=== PATIENT | female | born 1995 | race African-American/Black ===

== ENCOUNTER 2022-01-20 09:52 | Outpatient (CLI) | payer OTHER, SELFPAY ==
[2022-01-20 11:00] LABS: Beta HCG Quantitative < 2.39 mIU/ML
== END 2022-01-20 09:53 | disposition home or self-care (01) ==
PROVIDERS: Visit Provider Obstetrics & Gynecology
DX: N92.6 Irregular menstruation, unspecified (principal)
CPT/HCPCS: 36415; 84702

== ENCOUNTER 2022-10-13 17:57 | Inpatient (IN) | payer OTHER, SELFPAY ==
--- NOTE | ~2022-10-13 | US_ITS ---
EXAMINATION: US abdomen limited DATE: 10/13/2022 23:21 INDICATION: pancreatitis epigastric pain TECHNIQUE: Multiple grayscale and Doppler ultrasound images of limited portions of the abdomen were o btained. COMPARISON: CT abdomen and pelvis, same date. FINDINGS: The visualized portions of the pancreas are sonographically normal. The liver is normal wit h normal echogenicity and echotexture. No surface nodularity. Normal hepatopetal flow in the main por tonny vein. The gallbladder is normal with no abnormal wall thickening, pericholecystic fluid or stones . The common bile duct measures 4 mm. There was no sonographic Salcedo sign. IMPRESSION: Normal limited abdominal ultrasound findings. Reviewed, dictated and finalized at location K. METRIC ASSISTANT
--- NOTE | ~2022-10-13 | CT_ITS ---
EXAMINATION: CT abdomen pelvis w con DATE: 10/13/2022 21:50 INDICATION: abdominal pain elevated lipase TECHNIQUE: Computed tomography (CT) of the abdomen and pelvis was performed with 100 mL Omnipaque-350 intravenous contrast. Automated exposure control and iterative reconstruction technique were employe d. The dose-length product was 272.64 mGy-cm. COMPARISON: None. FINDINGS: Lower thorax: Unremarkable Liver: Normal. Biliary/Gallbladder: Gallbladder is normal. No bile duct dilation. Pancreas: Enlarged edematous appearing pancreas with surrounding inflammatory change. Spleen: Normal. Adrenals:No mass. Kidneys: No mass, stone, or hydronephrosis. Ectopic right kidney. GI tract: Moderate distal esophageal and gastric wall edema. No small or large bowel dilation. Append ix not visualized. Mesentery/Peritoneum: No ascites, mass, or free air. Retroperitoneum: No mass. Pelvis: Urinary bladder is empty. Dilated intensely enhancing left uterine and pelvic veins. Soft Tissues: Soft tissues and body wall unremarkable. Bones: No acute osseous finding. IMPRESSION: Esophagitis/gastritis. Acute interstitial pancreatitis. Dilated left uterine and pelvic veins as can be seen with pelvic venous congestion. Appendix not visualized. Reviewed, dictated and finalized at location K. IAL EDUCATION PARAEDUCATOR IMPRESSION: Esophagitis/gastritis. Acute interstitial pancreatitis. Dilated left uterine an d pelvic veins as can be seen with pelvic venous congestion. Appendix not visua lized.
--- NOTE | ~2022-10-13 | XR_ITS ---
EXAMINATION: XR chest 2V Exam Date/Time: 10/13/2022 18:44 FINANCIAL REPRESENTATIVE HISTORY: chest pain Comparison: 07/02/2009. RESULT: Lines, tubes, and devices: None. Lungs and pleura: Clear. Cardiomediastinal silhouette: Stable. Other: No acute osseous or upper abdominal finding. IMPRESSION: No acute cardiopulmonary process. Reviewed, dictated and finalized at location K. NCIAL REPRESENTATIVE
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
[2022-10-13 18:05] VITALS: BP 115/88; PULSE 94; RESP 18; TEMP 37.2; O2SAT 100
[2022-10-13 18:38] LABS: Basophils Percent Auto 0.1 % (0.2-1.2); Eosinophils Absolute Auto 0.1 K/mm3 (0-0.3); Hematocrit 38.7 % (37.0-47.0); Hemoglobin 12.9 g/dL (12.0-15.0); Immature Granulocyte Absolute 0.03 K/mm3 (0.00-0.031); Immature Granulocyte Percent A 0.4 % (0-0.5); Immature Platelet Fraction Pct 2.5 % (0.9-11.2); Lymphocytes Absolute Auto 1.76 K/mm3 (0.9-3.2); Lymphocytes Percent Auto 24.8 % (18.3-44.2); Mean Corpuscular HGB Conc 33.3 g/dl (32-36); Mean Corpuscular Hemoglobin 29.2 pg (26-34); Mean Corpuscular Volume 87.6 fl (80-100); Monocytes Absolute Auto 0.5 K/mm3 (0.1-0.6); Neutrophils Absolute Auto 4.7 K/mm3 (1.3-6.7); Neutrophils Percent Auto 66.7 % (45.5-73.1); Platelet Count Result 264 k/mm3 (150-375); Red Blood Count 4.42 M/mm3 (4.2-5.4); Red Cell Distribution Width 13.5 % (11.5-14.5); White Blood Count 7.1 K/mm3 (4.5-10.0)
[2022-10-13 18:46] LABS: Alanine Aminotransferase 45 U/L (6-35); Albumin Level 4.7 g/dL (3.5-5.1); Alkaline Phosphatase 69 U/L (38-126); Anion Gap 10 mmol/L (8-16); Aspartate Amino Transferase 46 U/L (14-36); Bilirubin,Total 0.6 mg/dL (0.2-1.3); Blood Urea Nitrogen 9 mg/dL (7-17); Calcium 9.4 mg/dL (8.4-10.2); Carbon Dioxide 20 mmol/L (22-30); Chloride 108 mmol/L (98-107); Estimated CRCL calculation 101 ml/min; Estimated Glomerular Filt Rate > 60; Glucose 86 mg/dL (65-110); Lipase 1818 U/L (23-300); Sodium 138 mmol/L (137-145)
[2022-10-13 18:49] LABS: INR 1.2; Prothrombin Time 14.6 Seconds (11.1-14.7)
[2022-10-13 18:50] LABS: Partial Thromboplastin Time 32.6 SECONDS (22.3-36.8)
[2022-10-13 18:58] LABS: Troponin I < 0.012 ng/mL (0.000-0.034)
[2022-10-13 20:03] VITALS: BP 122/90; PULSE 82; RESP 18; O2SAT 100
[2022-10-13] MEDS: ASPIRIN 81 MG CHEWABLE TABLET 324 MG PO (20:05)
--- NOTE | 2022-10-13 20:27 | ED.GENADULT ---
HPI - General Adult General Chief complaint: Chest Pain Stated complaint: CHEST WALL PAIN Time Seen by Provider: 10/13/22 20:14 History of Present Illness HPI narrative: Patient was 7-year-old female who presents the emergency department with chief complaint of epigastric pain. Patient reports that 4 days ago she started having discomfort in her epigastric region the patient reports that the pain is an aching-like pain with a sharp component. Patient denies vomiting patient denies fever patient reports that symptoms or not improved by anything. Patient states for the last 4 days she has been trying to just do rest on her abdomen and doing clear liquids but reports the pain has been getting worse. Patient reports no prior history of abdominal surgery and the patient reports that she does drink alcohol but drinks socially Related Data Allergies Allergy/AdvReac Type Severity Reaction Status Date / Time No Known Allergies Allergy Verified 10/09/22 10:02 Review of Systems Review of Systems: A 10 system review of systems was completed on the patient and is negative except for what is stated in the HPI. Nursing and ancillary documentation was reviewed. [facility] Past Medical History Medical History Asthma Complete miscarriage (~2017) Surgical History Surgical History History of dilation and curettage (~11/2017) Social History Social History Smoking status: Never smoker Alcohol intake: current Drinks per week: 1 Substance use: never Substance use type: does not use Living arrangements: other Additional living arrangements comments: single Occupation/Education: unemployed Gender identity (if verbalized by the patient): Female Sexual Orientation (if Verbalized by the Patient): Straight or Heterosexual Exam Narrative: GENERAL: Well-appearing, well-nourished, and in no acute distress. HEAD: Normocephalic, atraumatic. EYES: PERRLA and EOMI. ENT: Nares clear, no rhinorrhea or epistaxis. Mucous membranes moist. NECK: Supple. CHEST: Clear to auscultation. No respiratory distress. HEART: Regular rate and rhythm. No murmur heard. Normal peripheral pulses. ABDOMEN: Soft, tenderness to palpation in the epigastric region, nondistended, normal active bowel sounds. EXTREMITIES: Normal range of motion. No edema. SKIN: Warm, dry, no rash. NEURO: No focal deficits. Alert and oriented x3. PSYCH: Normal mood and affect. Course Vital Signs Vital signs: Vital Signs Temperature 37.2 C 10/13/22 18:05 Pulse Rate 94 10/13/22 18:05 Respiratory Rate 18 10/13/22 18:05 Blood Pressure 115/88 10/13/22 18:05 Pulse Oximetry 100 10/13/22 18:05 Oxygen Delivery Room Air 10/13/22 18:05 Temperature 37.2 C 10/13/22 18:05 Pulse Rate 78 10/13/22 22:34 Respiratory Rate 12 10/13/22 22:34 Blood Pressure 108/71 10/13/22 22:34 Pulse Oximetry 100 10/13/22 22:34 Oxygen Delivery Room Air 10/13/22 20:04 Medical Decision Making MDM Narrative Medical decision making narrative: Differential diagnosis includes ACS, pneumothorax, pancreatitis, EKG interpreted by me is sinus rhythm rate of [address] elevation or ST depression Laboratory studies were obtained which showed a negative troponin normal CBC electrolytes showed minimal elevation of liver transaminases as AST and ALT of 46 and 45 respectively bilirubin 0.6 lipase was 1818. Patient's history and exam is consistent with acute pancreatitis. Patient will be started on IV fluids pain control and antiemetics. A CT scan of the abdomen pelvis will be ordered to evaluate for pseudocyst or biliary causes for the pancreatitis. ct scan shows evidence of acute pancreatitis. Vital Signs Vital Signs: Vital Signs Temperature 37.2 C 10/13/22 18:05 Pulse Ra
[2022-10-13] MEDS: ONDANSETRON INJ 4 MG/2 ML VIAL IV PUSH (20:38)
[2022-10-13] MEDS: SODIUM CHLORIDE 0.9% IV 1,000 ML 999 ML IV CONT (20:38)
[2022-10-13] MEDS: MORPHINE SULFATE (*CRX) 4 MG/ML INJ IV PUSH (20:39)
[2022-10-13] MEDS: HYDROmorphone HCL INJ (*CRX) 1 MG/ML SYR IV PUSH ×2 (21:38→23:11)
[2022-10-13 21:39] VITALS: BP 111/69; PULSE 75; RESP 18; O2SAT 100
[2022-10-13 21:50] LABS: Influenza A QL RT-PCR Negative (Negative); Influenza B QL RT-PCR Negative (Negative); SARS-CoV-2 RNA PCR Negative
[2022-10-13 21:54] LABS: Troponin I < 0.012 ng/mL (0.000-0.034)
--- NOTE | 2022-10-13 22:33 | PC.NURSE ---
pt resting comfortably on stretcher, no acute distress, pt reports pain is still a 10/10, states no relief with the morphine or the dilaudid. pt awaiting re-eval and plan.
[2022-10-13 22:34] VITALS: BP 108/71; PULSE 78; RESP 12; O2SAT 100
[2022-10-13] MEDS: PANTOPRAZOLE SODIUM IV 40 MG VIAL IV PUSH (22:52)
[2022-10-13] MEDS: SODIUM CHLORIDE 0.9% IV 1,000 ML 200 ML IV CONT (23:00)
[2022-10-13 23:24] VITALS: BP 113/72; PULSE 76; RESP 18; O2SAT 100
[2022-10-14 00:17] VITALS: BMI 23.7
[2022-10-14 00:23] VITALS: BP 107/61; PULSE 73; RESP 18; TEMP 36.7; O2SAT 100
--- NOTE | 2022-10-14 00:33 | ADMGEN ---
This patient, Nicole Crowley, was admitted to Medical Room 345-. Patient/family oriented to hospital policies and general routines including ID bracelet, bed and alarms, visiting hours, pain management, procedures, bathroom and other care routines, personal items, smoking policy, room service/diet, and visiting hours. Information on how to activate the Rapid Response Team has been discussed. Patient/Family are encouraged to report perceived risks to care and to ask questions if they do not understand what they are told or what they should do.
[2022-10-14 01:34] LABS: Troponin I < 0.012 ng/mL (0.000-0.034)
[2022-10-14] MEDS: BELLADONNA ALK/PHENOB ELIX 10 ML, MAG HYDROX/ALUMINUM HYD/SIMETH 30 ML, LIDOCAINE HCL 2... PO (02:15)
[2022-10-14 03:57] VITALS: BP 104/54; PULSE 58; RESP 16; TEMP 36.6; O2SAT 100
[2022-10-14] MEDS: KETOROLAC 30 MG/ML VIAL (*BKC) IV PUSH ×3 (04:03→19:18)
--- NOTE | 2022-10-14 05:20 | PM.IMHP ---
H&P: HPI History of Present Illness Date/Time: 10/14/22 03:10 Chief Complaint: Upper abdominal pain Narrative: 27-year-old female previously healthy who presented to the ER with epigastric abdominal pain. The patient initially stated that she was having chest pain but when she indicates where the pain is located is in the epigastric region. She is states that she tried to take Tylenol at home with pain without relief. The pain is worse with moving and deep breathing. She states the pain is sharp and constant at all times. Does not radiate to her back or right upper quadrant. She has no associated nausea or vomiting. She states it is been going on for 4 days and she was managing it by trying to stay in bed and only drinking liquids. She says that she is on food stamps and it for 4- 5 days prior to the onset of symptoms she was cooking a lot of food to usual to food that he had from the month before. She said her last meal prior to onset of symptoms was steak. She denies any recent ill contacts or travel. She has any changes in bowel habits. She has not had a bowel movement in the last 4 days but relates this to the fact that she has not been eating for 4 days. She denies any urinary symptoms. She has not had any fevers or chills. She has never had symptoms like this before. She has never had any abdominal surgeries. She has 2 children which she delivered vaginally. She she does drink alcohol on occasion but the last time she drank was 5-6 days prior to onset of her symptoms. In the ER CT demonstrated esophagitis/gastritis. And acute interstitial pancreatitis. Dilated uterine and pelvic veins can be seen with pelvic venous congestion. Appendix not visualized. Patient's lipase was also elevated to 1818 and she had mild transaminitis with AST 46 and ALT of 45. Plan was for right upper quadrant ultrasound in a.m. but technology recruiter evidently came in and did the ultrasound last evening and ultrasound was negative for gallbladder pathology or stones. I gave the patient a GI cocktail after she arrived to the floor because she stated that morphine and Dilaudid did not help her pain. She also did not like the FX of the morphine and Dilaudid. She states that she is afraid of pain medications. She is requesting something else for pain that is not narcotics. She received IV Tylenol as well after my evaluation in that did not help her pain either. Review of Systems Review of Systems: 12 systems were reviewed with pertinent positives and negatives per HPI. Except as documented in the HPI, all other systems were reviewed and are negative. [facility] Past Medical History Medical History (Updated 10/14/22 @ 05:38 by Agatha Rodriguez DO) Complete miscarriage (~2017) Surgical History Surgical History History of dilation and curettage (~11/2017) Family History Family History Grandparent Diabetes mellitus Father Diabetes mellitus Mother Asthma Social History Social History (Updated 10/14/22 @ 05:30 by Agatha Rodriguez DO) Social History: She lives with her boyfriend. She has 2 children a daughter age 10 in the son H 3. To lifelong nonsmoker. She drinks alcohol in moderation in on occasion. She denies any illicit substance use. Code status: Full code Smoking status: Never smoker Alcohol intake: current Drinks per week: 1 Substance use: never Substance use type: does not use Lack of Transportation: No Lack of Food: Never True Current Housing: I Have Housing Concerned About Future Housing: No Difficulty Paying Gas/Electric Bills: No Difficulty Paying for Meds: No Currently Unemployed: No Education: High School Diploma/GED Difficulty w/ Childcare or Family Care: YES Living arrangements: other Additional living arrangements comments: single Occupation/Education: unemployed [employer]
[2022-10-14 06:25] LABS: Alanine Aminotransferase 34 U/L (6-35); Albumin Level 3.6 g/dL (3.5-5.1); Alkaline Phosphatase 50 U/L (38-126); Anion Gap 6 mmol/L (8-16); Aspartate Amino Transferase 32 U/L (14-36); Bilirubin,Total 0.5 mg/dL (0.2-1.3); Blood Urea Nitrogen 5 mg/dL (7-17); Calcium 7.8 mg/dL (8.4-10.2); Carbon Dioxide 20 mmol/L (22-30); Chloride 108 mmol/L (98-107); Estimated CRCL calculation 116 ml/min; Estimated Glomerular Filt Rate > 60; Glucose 81 mg/dL (65-110); Lipase 1859 U/L (23-300); Potassium 3.4 mmol/L (3.4-5.0); Sodium 134 mmol/L (137-145)
[2022-10-14] MEDS: SODIUM CHLORIDE 0.9% IV 1,000 ML 200 ML IV CONT (08:33)
[2022-10-14] MEDS: PANTOPRAZOLE SODIUM IV 40 MG VIAL IV PUSH (08:33)
--- NOTE | 2022-10-14 13:18 | PM.IMPN ---
Subjective Date/time seen: 10/14/22 13:18 Pt seen and examined Pt admitted for alcoholic pancreatitis States her abdomen is still sore Requesting more pain medications Pt drinks heavily on weekends watch for DT Continue npo with iv fluids and pain medications Objective Data Vital Signs Vital Signs: Vital Signs - 24 hr 10/13/22 18:05 10/13/22 20:03 10/13/22 20:04 Temperature 37.2 C Pulse Rate 94 82 Respiratory Rate 18 18 Blood Pressure 115/88 122/90 Pulse Oximetry 100 100 Oxygen Delivery Room Air Room Air 10/13/22 21:39 10/13/22 22:34 10/13/22 23:24 Temperature Pulse Rate 75 78 76 Respiratory Rate 18 12 18 Blood Pressure 111/69 108/71 113/72 Pulse Oximetry 100 100 100 Oxygen Delivery 10/14/22 00:23 10/14/22 03:57 10/14/22 08:30 Temperature 36.7 C 36.6 C Pulse Rate 73 58 L Respiratory Rate 18 16 Blood Pressure 107/61 104/54 L Pulse Oximetry 100 100 Oxygen Delivery Room Air Intake/Output Intake/Output: Intake & Output 10/11/22 10/12/22 10/13/22 10/14/22 23:59 23:59 23:59 23:59 Intake Total 1000 1000 Output Total 350 Balance 1000 650 Meds/Results Medications: Active Medications Generic Name Dose Route Start Last Admin Trade Name Freq PRN Reason Stop Dose Admin Hydromorphone HCl 1 mg 10/13/22 22:47 Hydromorphone Hcl Inj (*Crx) 1 Mg/Ml Syr IV PUSH Q3H PRN Pain Rated 7-10 Sodium Chloride 1,000 mls @ 100 mls/hr 10/13/22 22:50 10/14/22 08:33 Normal Saline Iv IV CONT 200 mls/hr .Q10H JULES Administration Ketorolac Tromethamine 30 mg 10/14/22 03:34 10/14/22 10:22 Ketorolac 30 Mg/Ml Vial (*Bkc) IV PUSH 10/16/22 03:33 30 mg Q6H PRN Administration Pain Rated 4-6 Ondansetron HCl 4 mg 10/13/22 22:47 Ondansetron Inj 4 Mg/2 Ml Vial IV PUSH Q4H PRN Nausea Pantoprazole Sodium 40 mg 10/14/22 09:00 02/22/23 08:33 Pantoprazole Sodium Iv 40 Mg Vial IV PUSH 40 mg QAM JULES Administration Radiology Results: ITS Impressions Chest X-Ray 10/13/22 19:11 IMPRESSION: No acute cardiopulmonary process. Abdomen/Pelvis CT 10/13/22 22:08 IMPRESSION: Esophagitis/gastritis. Acute interstitial pancreatitis. Dilated left uterine and pelvic veins as can be seen with pelvic venous congestion. Appendix not visualized. Abdomen Ultrasound 10/13/22 23:22 IMPRESSION: Normal limited abdominal ultrasound findings. Labs Labs: Laboratory Results - last 24 hr 10/13/22 10/13/22 10/13/22 18:12 18:12 18:12 WBC 7.1 RBC 4.42 Hgb 12.9 Hct 38.7 MCV 87.6 MCH 29.2 MCHC 33.3 RDW 13.5 Plt Count 264 MPV TNP Immature Gran % (Auto) 0.4 Neut % (Auto) 66.7 Lymph % (Auto) 24.8 [place] % (Auto) 7.0 Eos % (Auto) 1.0 Baso % (Auto) 0.1 L Lymph # (Auto) 1.76 [place] # (Auto) 0.5 Eos # (Auto) 0.1 Baso # (Auto) 0.0 Abs Immat Gran (auto) 0.03 Absolute Neuts (auto) 4.7 Absolute Nucleated RBC 0.0 Nucleated RBC % 0.0 % Immature Plt Fraction 2.5 PT 14.6 INR 1.2 APTT 32.6 Sodium 138 Potassium 4.0 Chloride 108 H Carbon Dioxide 20 L Anion Gap 10 BUN 9 Creatinine 0.70 Estim Creat Clear Calc 101 Estimated GFR > 60 Glucose 86 Calcium 9.4 Total Bilirubin 0.6 AST 46 H ALT 45 H Alkaline Phosphatase 69 Troponin I < 0.012 Total Protein 8.0 Albumin 4.7 Lipase 1818 H TSH (Reflex) Influenza A (RT-PCR) Influenza B (RT-PCR) SARS-CoV-2 RNA (RT-PCR) 10/13/22 10/13/22 10/14/22 21:08 21:23 00:40 WBC RBC Hgb Hct MCV MCH MCHC RDW Plt Count MPV Immature Gran % (Auto) Neut % (Auto) Lymph % (Auto) [place] % (Auto) Eos % (Auto) Baso % (Auto) Lymph # (Auto) [place] # (Auto) Eos # (Auto) Baso # (Auto) Abs Immat Gran (auto) Absolute Neuts (auto) Absolute Nucleated RBC Nucle
[2022-10-14 14:00] VITALS: BP 102/71; PULSE 72; RESP 16; TEMP 36.6; O2SAT 100
[2022-10-14] MEDS: SODIUM CHLORIDE 0.9% IV 1,000 ML 100 ML IV CONT (16:53)
[2022-10-14] MEDS: HYDROcodone/acetaminophen (*CRX) 10-325 MG TABLET 1 TAB PO ×2 (18:04→23:53)
[2022-10-14] MEDS: ONDANSETRON INJ 4 MG/2 ML VIAL IV PUSH (19:18)
[2022-10-14 20:00] VITALS: PULSE 72; RESP 16; O2SAT 100
[2022-10-14 21:09] VITALS: BP 104/66; PULSE 86; RESP 18; TEMP 36.4; O2SAT 100
[2022-10-15] MEDS: SODIUM CHLORIDE 0.9% IV 1,000 ML 100 ML IV CONT ×3 (03:19→23:40)
[2022-10-15 04:53] VITALS: BP 103/51; PULSE 70; RESP 18; TEMP 36.3; O2SAT 100
[2022-10-15] MEDS: HYDROcodone/acetaminophen (*CRX) 10-325 MG TABLET 1 TAB PO ×4 (05:57→23:40)
[2022-10-15] MEDS: PANTOPRAZOLE SODIUM IV 40 MG VIAL IV PUSH (08:13)
[2022-10-15] MEDS: KETOROLAC 30 MG/ML VIAL (*BKC) IV PUSH (08:13)
[2022-10-15 09:16] LABS: Anion Gap 6 mmol/L (8-16); Blood Urea Nitrogen 2 mg/dL (7-17); Calcium 8.1 mg/dL (8.4-10.2); Carbon Dioxide 21 mmol/L (22-30); Chloride 109 mmol/L (98-107); Estimated CRCL calculation 116 ml/min; Estimated Glomerular Filt Rate > 60; Glucose 73 mg/dL (65-110); Potassium 3.3 mmol/L (3.4-5.0); Sodium 136 mmol/L (137-145)
[2022-10-15 09:21] LABS: Lipase 2230 U/L (23-300)
--- NOTE | 2022-10-15 11:23 | PM.IMPN ---
Progress Note: A&P Assessment and Plan (1) Acute pancreatitis: Qualifiers: Acute pancreatitis complication: no infection or necrosis Pancreatitis type: idiopathic Qualified Code(s): K85.00 - Idiopathic acute pancreatitis without necrosis or infection Code(s): K85.90 - Acute pancreatitis without necrosis or infection, unspecified Status: Acute Assessment and Plan: Acute pancreatitis secondary to alcoholism GB US is negative. Pt having ongoing abdominal pains, start clear liquid diet Watch lipase levels, GI rounding Pt on iv Dilaudid and norco prn for pain pt is on iv fluids and iv protonix (2) Alcohol abuse: Code(s): F10.10 - Alcohol abuse, uncomplicated Status: Acute Assessment and Plan: Pt having high CIWA scores pt to have Librium if CIWA is above 4 Plan DVT prophylaxis--encouraged the patient be up and ambulating. Subjective Date/time seen: 10/15/22 11:23 Pt admitted for alcoholic pancreatitis States her abdomen is still sore Requesting more pain medications Pt drinks heavily on weekends lipase slightly worse today at 2230 pt anxious because she cannot see her children Review of Systems Review of Systems: Ongoing abdominal pain, very anxious Exam Const: Other: No acute distress, well-developed well-nourished Resp: Other: Clear to auscultation bilaterally, no increased work of breathing Cardio: Other: Regular rate, regular rhythm, 2+ bilateral radial pedal pulses GI: Other: Reproducible epigastric abdominal pain, abdomen is soft, positive bowel sounds, no organomegaly, no rebound, no guarding Skin: Other: No jaundice, no pallor Neuro: Other: Alert oriented, speech is clear, no facial asymmetry, no localizing neurologic deficits noted during conversation Extrem: Other: No clubbing, cyanosis or edema Psych: Other: Appropriate mood and affect, pleasant and cooperative, anxious when discussing medications Objective Data Vital Signs Vital Signs: Vital Signs - 24 hr 10/14/22 14:00 10/14/22 20:00 10/14/22 21:09 Temperature 36.6 C 36.4 C Pulse Rate 72 72 86 Respiratory Rate 16 16 18 Blood Pressure 102/71 104/66 Pulse Oximetry 100 100 100 Oxygen Delivery Room Air 10/15/22 04:53 10/15/22 08:00 Temperature 36.3 C L Pulse Rate 70 Respiratory Rate 18 Blood Pressure 103/51 L Pulse Oximetry 100 Oxygen Delivery Room Air Intake/Output Intake/Output: Intake & Output 10/12/22 10/13/22 10/14/22 10/15/22 23:59 23:59 23:59 23:59 Intake Total 1000 2240 1690 Output Total 1050 1675 Balance 1000 1190 15 Meds/Results Medications: Active Medications Generic Name Dose Route Start Last Admin Trade Name Freq PRN Reason Stop Dose Admin Hydrocodone Bitart/Acetaminophen 1 tab 10/14/22 18:00 10/15/22 05:57 Hydrocodone/Acetaminophen (*Crx) 10-325 Mg Tablet PO 1 tab Q6HR JULES Administration Chlordiazepoxide HCl 10 mg 10/14/22 13:22 Chlordiazepoxide (*Crx) 10 Mg Capsule PO Q8H PRN Anxiety Hydromorphone HCl 1 mg 10/14/22 13:21 Hydromorphone Hcl Inj (*Crx) 1 Mg/Ml Syr IV PUSH Q2H PRN Pain Rated 7-10 Sodium Chloride 1,000 mls @ 100 mls/hr 10/13/22 22:50 10/15/22 03:19 Normal Saline Iv IV CONT 100 mls/hr .Q10H JULES Administration Ketorolac Tromethamine 30 mg 10/14/22 03:34 10/15/22 08:13 Ketorolac 30 Mg/Ml Vial (*Bkc) IV PUSH 10/16/22 03:33 30 mg Q6H PRN Administration Pain Rated 4-6 Ondansetron HCl 4 mg 10/13/22 22:47 10/14/22 19:18 Ondansetron Inj 4 Mg/2 Ml Vial IV PUSH 4 mg Q4H PRN Administration Nausea Pantoprazole Sodium 40 mg 10/14/22 09:00 10/15/22 08:13 Pantoprazole Sodium Iv 40 Mg Vial IV PUSH 40 mg QAM JULES Administration Radiology Results: ITS Impressions Chest X-Ray 10/13/22 19:11 IMPRESSION: No acute cardiopulmonary process. Abdomen/Pelvis CT 10/13/22 22:08 IMPRESSION: E
[2022-10-15] MEDS: ONDANSETRON INJ 4 MG/2 ML VIAL IV PUSH (11:24)
--- NOTE | 2022-10-15 11:40 | PC.NURSE ---
RN completed a CIWAH and pt scored an 8. RN notified hospitalist, Sanjuana, who stated to add Librium PRN for a CIWAH > 4. Sanjuana also stated to do CIWAH's TID. RN put in these orders.
[2022-10-15] MEDS: chlordiazePOXIDE (*CRX) 10 MG CAPSULE PO (12:10)
[2022-10-15 14:00] VITALS: BP 112/66; PULSE 62; RESP 18; TEMP 36.2; O2SAT 100
--- NOTE | 2022-10-15 15:31 | WPDGICN ---
Assessment and Plan Assessment and plan (1) Acute pancreatitis: Qualifiers: Acute pancreatitis complication: no infection or necrosis Pancreatitis type: idiopathic Qualified Code(s): K85.00 - Idiopathic acute pancreatitis without necrosis or infection Code(s): K85.90 - Acute pancreatitis without necrosis or infection, unspecified Status: Acute Assessment and Plan: on liquid diet wonder if could have been related to alcohol use (2) Alcohol abuse: Code(s): F10.10 - Alcohol abuse, uncomplicated Status: Acute Assessment and Plan: thiamine, mvi monitor (3) Upper abdominal pain: Code(s): R10.10 - Upper abdominal pain, unspecified Status: Acute Assessment and Plan: will also assess with egd tomorrow given possible esophagitis and assess if ulcer (4) Abnormal finding on GI tract imaging: Code(s): R93.3 - Abnormal findings on diagnostic imaging of other parts of digestive tract Status: Acute GI Consult Note Consult date/time: 10/15/22 15:31 Reason for consult: pancreatitis, abdominal pain HPI: Nicole Crowley is a 27 year old female who came to the ER with new onset of epigastric abdominal pain that started about 4 days prior to admission, she says that day before had something to drink, she is not a daily drinker but on weekends and special occasions sometimes she gets drunk.?She denies any recent ill contacts or travel. She has never had symptoms like this before, abdominal surgeries.? ER evaluation showed CT scan with esophagitis/gastritis and acute interstitial pancreatitis.?Lipase was elevated to 1818 and she had mild transaminitis with AST 46 and ALT of 45. Tolerating liquids but still with some pain. Review of Systems Constitutional: Constitutional: Denies headache(s) and Denies weakness Eyes: Eyes: Denies blurry vision ENT: Reports Normal hearing present, Denies headache(s) and Denies neck pain Cardiovascular: Cardiovascular: Denies chest pain and Denies dyspnea Respiratory: Respiratory: Denies dyspnea Gastrointestinal: Gastrointestinal: Reports no additional gastrointestinal complaints Genitourinary: Genitourinary: Denies dysuria Musculoskeletal: Musculoskeletal: Denies neck pain Integumentary/Breasts: Skin/Breast: Denies dry skin Neurologic: Reports Normal hearing present, Denies headache(s) and Denies weakness Psychiatric: Psychiatric: Reports anxiety (crying because she is missing her kids) Endocrine: Endocrine: Denies change in body appearance Hematologic/Lymphatic: Hematologic/Lymphatic: Denies easy bleeding Allergic/Immunologic: Allergic/Immunologic: Denies urticaria PMFSH Past Medical History Medical History (Updated 10/15/22 @ 16:08 by Balbir Kaur MD) Abnormal finding on GI tract imaging Complete miscarriage (~2017) Upper abdominal pain Surgical History Surgical History History of dilation and curettage (~11/2017) Family History Family History Grandparent Diabetes mellitus Father Diabetes mellitus Mother Asthma Social History Social History (Updated 10/14/22 @ 05:30 by Agatha Rodriguez DO) Social History: She lives with her boyfriend. She has 2 children a daughter age 10 in the son H 3. To lifelong nonsmoker. She drinks alcohol in moderation in on occasion. She denies any illicit substance use. Code status: Full code Smoking status: Never smoker Alcohol intake: current Drinks per week: 1 Substance use: never Substance use type: does not use Lack of Transportation: No Lack of Food: Never True Current Housing: I Have Housing Concerned About Future Housing: No Difficulty Paying Gas/Electric Bills: No Difficulty Paying for Meds: No Currently Unemployed: No Education: High School Diploma/GED Difficulty w/ Childcare or Family C
[2022-10-15 20:00] VITALS: PULSE 62; RESP 18; O2SAT 100
--- NOTE | 2022-10-15 21:54 | PC.NURSE ---
When making initital rounds pt was with significant other and was crying and upset. Privacy provided.
[2022-10-15 22:00] VITALS: BP 108/59; PULSE 66; RESP 16; TEMP 36.2; O2SAT 100
[2022-10-16 06:00] VITALS: BP 138/68; PULSE 80; RESP 16; TEMP 36.3; O2SAT 99
[2022-10-16] MEDS: HYDROcodone/acetaminophen (*CRX) 10-325 MG TABLET 1 TAB PO (06:08)
[2022-10-16] MEDS: PANTOPRAZOLE SODIUM IV 40 MG VIAL IV PUSH (10:21)
[2022-10-16] MEDS: SODIUM CHLORIDE 0.9% IV 1,000 ML 100 ML IV CONT ×2 (10:21→21:20)
[2022-10-16 10:50] LABS: Alanine Aminotransferase 34 U/L (6-35); Albumin Level 3.9 g/dL (3.5-5.1); Alkaline Phosphatase 63 U/L (38-126); Anion Gap 9 mmol/L (8-16); Aspartate Amino Transferase 27 U/L (14-36); Bilirubin,Total 0.6 mg/dL (0.2-1.3); Calcium 8.6 mg/dL (8.4-10.2); Carbon Dioxide 19 mmol/L (22-30); Chloride 107 mmol/L (98-107); Estimated CRCL calculation 137 ml/min; Estimated Glomerular Filt Rate > 60; Glucose 52 mg/dL (65-110); Lipase 1422 U/L (23-300); Potassium 3.3 mmol/L (3.4-5.0); Sodium 135 mmol/L (137-145)
[2022-10-16 10:59] LABS: Glucose Point of Care 44 mg/dl (65-105)
[2022-10-16] MEDS: DEXTROSE 50% 25 GM/50 ML SYRINGE IV PUSH (11:08)
[2022-10-16 11:41] LABS: Glucose Point of Care 166 mg/dl (65-105)
[2022-10-16 12:37] LABS: Glucose Point of Care 130 mg/dl (65-105)
[2022-10-16] MEDS: LACTATED RINGERS 1,000 ML 150 ML IV CONT (13:44)
[2022-10-16 13:48] VITALS: BP 112/63; PULSE 74; RESP 16; TEMP 36.3; O2SAT 100
--- NOTE | 2022-10-16 13:51 | PCCCNOTE ---
On 10/16/22, the student, [Carito Dobbins], provided care and completed [facility] documentation on this patient. I have reviewed the student's documentation and agree with the findings.
--- NOTE | 2022-10-16 14:18 | WPDANESEPPF ---
Anes - Initial Pre Proc Eval Procedure: Operation Date: 10/16/22 14:30 Proposed Procedures p Esophagogastroduodenoscopy - Balbir Kaur MD Date/Time: 10/16/22 14:18 Surgeon: Agatha Rodriguez DO Pre Op Diagnosis: Acute Pancreatitis Patient Data Age: 27 Gender: F Height: 1.7 m Weight: 68.7 kg Last Vital Signs Temp 97.4 F L 10/16/22 13:48 Pulse 74 10/16/22 13:48 Resp 16 10/16/22 13:48 BP 112/63 10/16/22 13:48 Pulse Ox 100 10/16/22 13:48 O2 Del Method Room Air 10/16/22 13:48 Allergies Allergy/AdvReac Type Severity Reaction Status Date / Time No Known Allergies Allergy Verified 10/16/22 13:44 Home Medications Medication Instructions Recorded Confirmed Type medroxyprogesterone 150 mg/mL 150 mg IM [id number] #1 mL 06/04/22 10/14/22 Rx intramuscular syringe (Depo-Provera) Laboratory Tests 10/16/22 10/16/22 10/16/22 10:23 10:55 11:38 Sodium 135 mmol/L L mmol/L (137-145) Potassium 3.3 mmol/L L mmol/L (3.4-5.0) Chloride 107 mmol/L mmol/L (98-107) Carbon Dioxide 19 mmol/L L mmol/L (22-30) Anion Gap 9 mmol/L mmol/L (8-16) BUN Pending Creatinine 0.50 mg/dL L mg/dL (0.7-1.0) Estim Creat Clear Calc 137 ml/min ml/min Estimated GFR > 60 (59 - ) Glucose 52 mg/dL L* mg/dL (65-110) POC Capillary Glucose 44 mg/dl L* mg/dl 166 mg/dl H mg/dl (65-105) (65-105) Calcium 8.6 mg/dL mg/dL (8.4-10.2) Total Bilirubin 0.6 mg/dL mg/dL (0.2-1.3) AST 27 U/L U/L (14-36) ALT 34 U/L U/L (6-35) Alkaline Phosphatase 63 U/L U/L (38-126) Total Protein 7.0 g/dL g/dL (6.3-8.2) Albumin 3.9 g/dL g/dL (3.5-5.1) Lipase 1422 U/L H U/L (23-300) 10/16/22 12:35 Sodium Potassium Chloride Carbon Dioxide Anion Gap BUN Creatinine Estim Creat Clear Calc Estimated GFR Glucose POC Capillary Glucose 130 mg/dl H mg/dl (65-105) Calcium Total Bilirubin AST ALT Alkaline Phosphatase Total Protein Albumin Lipase Patient hx anesthesia problems: none Family hx anesthesia problems: none Results Review: All pre-operative results and documents have been reviewed as part of the pre-operative evaluation. [facility] Past Medical History Medical History (Updated 10/15/22 @ 16:08 by Balbir Kaur MD) Abnormal finding on GI tract imaging Complete miscarriage (~2017) Upper abdominal pain Surgical History Surgical History History of dilation and curettage (~11/2017) Family History Family History Grandparent Diabetes mellitus Father Diabetes mellitus Mother Asthma Social History Social History (Updated 10/14/22 @ 05:30 by Agatha Rodriguez DO) Social History: She lives with her boyfriend. She has 2 children a daughter age 10 in the son H 3. To lifelong nonsmoker. She drinks alcohol in moderation in on occasion. She denies any illicit substance use. Code status: Full code Smoking status: Never smoker Alcohol intake: current Drinks per week: 1 Substance use: never Substance use type: does not use Lack of Transportation: No Lack of Food: Never True Current Housing: I Have Housing Concerned About Future Housing: No Difficulty Paying Gas/Electric Bills: No Difficulty Paying for Meds: No Currently Unemployed: No Education: High School Diploma/GED Difficulty w/ Childcare or Family Care: YES Living arrangements: other Additional living arrangements comments: single Occupation/Education: unemployed Gender identity (if verbalized by the patient): Female Sexual Orientation (if [place]
[2022-10-16 14:28] VITALS: BP 109/65; PULSE 63; RESP 20; O2SAT 100
--- NOTE | 2022-10-16 14:30 | SUR.PHASEII ---
Blood glucose of 73. Patient asymptomatic. Gave a container of cranberry juice as discussing with Dr. Sims. 1510 - Gave update to floor nurse for further monitoring.
[2022-10-16 14:38] VITALS: BP 134/83; PULSE 57; RESP 20; O2SAT 100
[2022-10-16 14:48] VITALS: BP 135/85; PULSE 59; RESP 18; O2SAT 100
[2022-10-16 14:53] LABS: Glucose Point of Care 73 mg/dl (65-105)
--- NOTE | 2022-10-16 16:46 | PM.IMPN ---
Progress Note: A&P Assessment and Plan (1) Acute pancreatitis: Qualifiers: Acute pancreatitis complication: no infection or necrosis Pancreatitis type: idiopathic Qualified Code(s): K85.00 - Idiopathic acute pancreatitis without necrosis or infection Code(s): K85.90 - Acute pancreatitis without necrosis or infection, unspecified Status: Acute Assessment and Plan: Acute pancreatitis secondary to alcoholism GB US is negative. Pt having ongoing abdominal pains, lipase trending down. GI following. Pain control- lilo reports [place], dilaudid and morphine do not control pain, but only put [her] to sleep. We discussed alternative medications and she does not want to try different medications. Pt on iv Dilaudid and norco prn for pain pt is on iv fluids and iv protonix (2) Alcohol abuse: Code(s): F10.10 - Alcohol abuse, uncomplicated Status: Acute Assessment and Plan: Pt having high CIWA scores pt to have Librium if CIWA is above 4 (3) Hypoglycemia: Code(s): E16.2 - Hypoglycemia, unspecified Status: Acute Assessment and Plan: patient noted to have glucose 52 on serum labs today. Repeat beside glucose 44. She was given 1 amp D50 and repeat glucose 155. Hypoglycemic protocol initiated. Continue to monitor glucose AC/HS when eating. Likely due to NPO status, acute pancreatitis and chronic alcohol use. Plan DVT prophylaxis--encouraged the patient be up and ambulating. Subjective Date/time seen: 10/16/22 16:46 Patient is a 27-year-old female previously healthy who presented to the ER with epigastric abdominal pain who was found to have elevated lipase and alcohol-related pancreatitis. She reports persistent pain that is unchanged. [place], dilaudid and morphine only make her sleepy. no nausea or emesis. She has pain with deep inhalation that she attributes to pancreatitis. EGD today. Review of Systems Review of Systems: All systems reviewed & are unremarkable except as noted in HPI and below Exam Narrative: General: No acute distress.? Well-developed Mental Status/Psych: Awake, alert and oriented x3 with clear speech. Flat affect. Skin: Skin fair, warm, dry and intact without rashes or lesions. No open wounds. Good turgor.? HEENT: Normocephalic. Sclera is non-icteric. EOM intact. PERRL. Grossly normal hearing. Oral mucosa pink and dry. Neck: No JVD. Heart: S1 and S2 regular rate and rhythm. No murmurs, gallops, or rubs auscultated. Chest: Respirations even and unlabored. Lung sounds are clear to auscultation in all lobes bilaterally without wheezes, rhonchi, or rales. Abdomen: Soft, round and tender to palpation epigastric region.? Bowel sounds present in all 4 quadrants. Extremities:? Grossly normal ROM all extremities. No edema. Radial and dorsalis pedis pulses +2 bilaterally. Neurological: No focal deficits. Cranial nerves 2-12 grossly intact.? Objective Data Vital Signs Vital Signs: Vital Signs - 24 hr 10/15/22 20:00 10/15/22 22:00 10/16/22 06:00 Temperature 97.2 F L 97.4 F L Pulse Rate 62 66 80 Respiratory Rate 18 16 16 Blood Pressure 108/59 L 138/68 Pulse Oximetry 100 100 99 Oxygen Delivery Room Air 10/16/22 13:48 10/16/22 14:28 10/16/22 14:38 Temperature 97.4 F L Pulse Rate 74 63 57 L Respiratory Rate 16 20 20 Blood Pressure 112/63 109/65 134/83 Pulse Oximetry 100 100 100 Oxygen Delivery Room Air Room Air Room Air 10/16/22 14:48 Temperature Pulse Rate 59 L Respiratory Rate 18 Blood Pressure 135/85 Pulse Oximetry 100 Oxygen Delivery Room Air Intake/Output Intake/Output: Intake & Output 10/13/22 10/14/22 10/15/22 10/16/22 23:59 23:59 23:59 23:59 Intake Total 1000 2240 4720 1300 Output Total 1050 2175 Balance 1000 1190 2545 1300 Meds/Results Medications: Active Medications Generic Name Dose Route Start Last Admin Trade Name Freq PRN Reason Stop Dose Admin Hydrocodone Bitart/Aceta
[2022-10-16 17:28] LABS: Glucose Point of Care 62 mg/dl (65-105)
[2022-10-16 18:36] LABS: Blood Urea Nitrogen < 2 mg/dL (7-17)
[2022-10-16 18:39] LABS: Lipase 1053 U/L (23-300)
[2022-10-16 20:50] LABS: Glucose Point of Care 123 mg/dl (65-105)
[2022-10-16] MEDS: ACETAMINOPHEN 500 MG TABLET 1000 MG PO (21:17)
[2022-10-16 22:00] VITALS: BP 103/58; PULSE 105; RESP 20; TEMP 36.7; O2SAT 93
[2022-10-16 22:16] LABS: Glucose Point of Care 106 mg/dl (65-105)
[2022-10-17 01:07] LABS: Glucose Point of Care 87 mg/dl (65-105)
[2022-10-17 05:51] VITALS: BP 105/65; PULSE 56; RESP 20; TEMP 36.7; O2SAT 100
[2022-10-17 06:51] LABS: Basophils Percent Auto 0.2 % (0.2-1.2); Eosinophils Absolute Auto 0.1 K/mm3 (0-0.3); Hematocrit 29.5 % (37.0-47.0); Hemoglobin 9.8 g/dL (12.0-15.0); Immature Granulocyte Absolute 0.01 K/mm3 (0.00-0.031); Immature Granulocyte Percent A 0.2 % (0-0.5); Lymphocytes Absolute Auto 1.71 K/mm3 (0.9-3.2); Lymphocytes Percent Auto 39.6 % (18.3-44.2); Mean Corpuscular HGB Conc 33.2 g/dl (32-36); Mean Corpuscular Hemoglobin 29.2 pg (26-34); Mean Corpuscular Volume 87.8 fl (80-100); Monocytes Absolute Auto 0.2 K/mm3 (0.1-0.6); Monocytes Percent Auto 4.9 % (2.6-8.5); Neutrophils Absolute Auto 2.3 K/mm3 (1.3-6.7); Neutrophils Percent Auto 52.1 % (45.5-73.1); Platelet Count Result 385 k/mm3 (150-375); Red Blood Count 3.36 M/mm3 (4.2-5.4); Red Cell Distribution Width 12.8 % (11.5-14.5); White Blood Count 4.3 K/mm3 (4.5-10.0)
[2022-10-17 07:02] LABS: Alanine Aminotransferase 34 U/L (6-35); Albumin Level 3.6 g/dL (3.5-5.1); Alkaline Phosphatase 54 U/L (38-126); Anion Gap 5 mmol/L (8-16); Aspartate Amino Transferase 29 U/L (14-36); Bilirubin,Total 0.4 mg/dL (0.2-1.3); Calcium 8.1 mg/dL (8.4-10.2); Carbon Dioxide 23 mmol/L (22-30); Chloride 110 mmol/L (98-107); Estimated CRCL calculation 137 ml/min; Estimated Glomerular Filt Rate > 60; Glucose 116 mg/dL (65-110); Potassium 3.3 mmol/L (3.4-5.0); Sodium 138 mmol/L (137-145)
[2022-10-17 07:04] LABS: Blood Urea Nitrogen < 2 mg/dL (7-17)
[2022-10-17 08:12] LABS: Glucose Point of Care 115 mg/dl (65-105)
[2022-10-17 08:30] VITALS: PULSE 56; RESP 20; O2SAT 100
[2022-10-17] MEDS: PANTOPRAZOLE SODIUM IV 40 MG VIAL IV PUSH (08:32)
[2022-10-17] MEDS: POTASSIUM CHLORIDE 20 MEQ PACKET (FOR LIQUID) 40 MEQ PO (08:32)
[2022-10-17 09:49] VITALS: O2SAT 100
[2022-10-17 11:54] LABS: Glucose Point of Care 168 mg/dl (65-105)
--- NOTE | 2022-10-17 12:17 | PM.DS ---
DS: Admitting Diagnosis Discharge Date 10/17/2022 Admitting Diagnosis acute pancreatitis DS: Discharge Diagnosis Discharge Diagnosis (1) Acute pancreatitis: Qualifiers: Acute pancreatitis complication: no infection or necrosis Pancreatitis type: idiopathic Qualified Code(s): K85.00 - Idiopathic acute pancreatitis without necrosis or infection Code(s): K85.90 - Acute pancreatitis without necrosis or infection, unspecified Status: Acute Assessment and Plan: Acute pancreatitis secondary to alcoholism, CT abd/pelvis shows enlarged edematous appearing pancreas with surrounding inflammatory change. GB US negative for gallbladder disease. lipase 1818 on admission, up to 2230 during admission and trended down to 1053 by discharge. GI consulted. Pain control- [place], dilaudid and morphine ordered but did not control pain, but only put [her] to sleep. We discussed alternative medications and she does not want to try different medications. Toradol deferred due to gastritis. Bowel rest, IV fluids and alcohol counseling given. Diet advanced to low fat when tolerating PO and pain improved. Pain improved with Kpad per patient. (2) Alcohol abuse: Code(s): F10.10 - Alcohol abuse, uncomplicated Status: Acute Assessment and Plan: CIWA monitored per protocol. Max score 8 during hospitalization. treated with PRN librium. CIWA 2-4 at discharge. Patient drinks multiple drinks on the weekends. (3) Hypoglycemia: Code(s): E16.2 - Hypoglycemia, unspecified Status: Acute Assessment and Plan: patient noted to have glucose 52 on serum labs 10/16. Repeat beside glucose 44. She was given 1 amp D50 and repeat glucose 155. Hypoglycemic protocol initiated. Continue to monitor glucose AC/HS when eating. Likely due to NPO status, acute pancreatitis and chronic alcohol use. 10/17 overnight D5 IV fluids started due to nursing concern, however, patient glucose noted to be 87 at lowest draw. Repeat glucose in am 116 and 168 while eating. Patient counseled on s/s of hypoglycemia and what to do if blood sugar is low. (4) Gastritis: Code(s): K29.70 - Gastritis, unspecified, without bleeding Status: Acute Assessment and Plan: Gastritis/esopphagitis suggestive on CT abd/pelvis. Likely secondary to alcohol intake. Treated with IV protonix BID GI consulted. 10/16 EGD without abnormality. Biopsies taken. DS: Summary Hospital Course Reason for hospitalization: upper abdominal pain Hospital Course: Patient is a 27-year-old female previously healthy who presented to the ER with epigastric abdominal pain who was found to have elevated lipase and alcohol-related pancreatitis. Patient was admitted to the medical floor and lipase was monitored, which was trending down by discharge. She was placed on bowel rest, IV fluids and IV analgesics. Dilaudid, Morphine and [place] were trialed with minimal relief, however, patient did report Kpad and bowel rest helped with pain. GI was consulted and she underwent EGD that was without acute abnormality. US and CT were negative for acute gallbladder disease. She was also treated with IV PPI for possible gastritis suggested on CT scan. Her symptoms improved and she was discharged in stable condition. She was counseled to avoid alcohol, but if consumed, no more than 1 drink per day and 7 drinks/week. She verbalized understanding. AST/ALT were mildly elevated on admission and normalized by discharge. Status at Discharge Cognitive/behavioral status at discharge: Alert and oriented x4, baseline Functional status at discharge: independent ambulation Overall status at discharge: patient is back to baseline Time Spent with Patient Time attestation: Total time spent providing and/or coordinating discharge services: Time spent: Greater than 30 minutes Exam Narrative: General: No acute distress.? Well-developed adult female. Non-toxic appe
== END 2022-10-17 14:15 | disposition home or self-care (01) | DRG 282 ==
LOC: ANHED 23:46 → ANH3MED 23:51
PROVIDERS: Emergency Medicine; Family Medicine; Internal Medicine Gastroenterology; Admitting Provider Internal Medicine; Emergency Provider Emergency Medicine; Visit Provider Nurse Practitioner Family
PROC: 0DJ08ZZ Inspection of Upper Intestinal Tract, Via Natural or Artificial Opening Endoscopic (ICD-10-PCS; CPT 43235; principal; 2022-10-16 14:30)
DX: K85.20 Alcohol induced acute pancreatitis without necrosis or infection (principal); E16.2 Hypoglycemia, unspecified; F10.10 Alcohol abuse, uncomplicated; Z20.822 Contact with and (suspected) exposure to COVID-19; J45.909 Unspecified asthma, uncomplicated
CPT/HCPCS: 36415; 71046; 74177; 76705; 80048; 80053; 81025; 82948; 83690; 84443; 84484; 85025; 85055; 85610; 85730; 87636; 88305; 88342; 93005; 96361; 96365; 96374; 96375; 96376; 99285; A9270; C9113; G0378; G0379; J0131; J1170; J1885; J2270; J2405; J2704; J7030; J7120; Q9967

== ENCOUNTER 2023-01-17 08:48 | Emergency (ER) | payer OTHER, SELFPAY ==
[2023-01-17 08:53] VITALS: BP 105/83; PULSE 105; RESP 16; TEMP 36.8; O2SAT 99
--- NOTE | 2023-01-17 09:00 | ED.URI ---
HPI - URI/Sore Throat General Chief Complaint: Upper Respiratory Infection Stated Complaint: sore throat Time Seen by Provider: 01/17/23 08:55 Source: patient Mode of arrival: ambulatory Limitations: no limitations History of Present Illness HPI Narrative: Patient is a 27-year-old female who presents to the ED with report of upper respiratory symptoms. Patient reports she developed URI sx's yesterday, including cough, rhinorrhea, congestion, sore throat, headache. She has been taking Tylenol and Mucinex Sore throat. Sx's worse this am, which prompted her presentation. She has not taken any Tylenol/Ibuprofen today. Denies fever, ear pain, SOB, CP, N/V, abdominal pain. Denies recent sick contacts. 3 year old son also has mild cough. Related Data Allergies Allergy/AdvReac Type Severity Reaction Status Date / Time No Known Allergies Allergy Verified 01/01/23 10:08 Review of Systems Review of Systems: CONSTITUTIONAL: Denies fever, chills, or sweats. EYES: Denies visual changes. ENT: See HPI. CARDIOVASCULAR: Denies chest pain, palpitations, or edema. RESPIRATORY: See HPI. GASTROINTESTINAL: Denies abdominal pain, nausea, vomiting. NEUROLOGIC: See HPI. All systems reviewed & are unremarkable except as noted in HPI and below PMFSH Past Medical History Medical History Abnormal finding on GI tract imaging Complete miscarriage (~2017) Upper abdominal pain Surgical History Surgical History History of dilation and curettage (~11/2017) Family History Family History Grandparent Diabetes mellitus Father Diabetes mellitus Mother Asthma Social History Social History Social History: She lives with her boyfriend. She has 2 children a daughter age 10 in the son H 3. To lifelong nonsmoker. She drinks alcohol in moderation in on occasion. She denies any illicit substance use. Code status: Full code Smoking status: Never smoker Alcohol intake: current Drinks per week: 1 Substance use: never Substance use type: does not use Lack of Transportation: No Lack of Food: Never True Current Housing: I Have Housing Concerned About Future Housing: No Difficulty Paying Gas/Electric Bills: No Difficulty Paying for Meds: No Currently Unemployed: No Education: High School Diploma/GED Difficulty w/ Childcare or Family Care: YES Living arrangements: other Additional living arrangements comments: single Occupation/Education: unemployed Gender identity (if verbalized by the patient): Female Sexual Orientation (if Verbalized by the Patient): Straight or Heterosexual Spiritual care concerns: No Exam Narrative: GENERAL: Well appearing, well-nourished, non-toxic, in no acute distress. HEAD: Normocephalic, atraumatic. EYES: PERRLA/EOMI, conjunctiva clear. No drainage. ENT: MMs moist. Mild posterior pharynx erythema. No tonsillar hypertrophy or exudate. Uvula midline. Hoarse quality to voice. No stridor or trismus. No drooling. NECK: Supple. No adenopathy, no masses. RESPIRATORY: Airway patent, respirations nonlabored. Clear to auscultation bilaterally, no rales, rhonchi, wheezing. CARDIOVASCULAR: Borderline tachycardic with regular rhythm without murmurs, rubs, or gallops. Radial pulses 2+ and equal bilaterally. MUSCULOSKELETAL: Moves all extremities. Strength/ROM intact without gross deformities. SKIN: Warm, dry, normal color. No rashes. NEURO: A&O X3. Speech clear. Cranial nerves II-XII grossly intact. Steady gait. No ataxic movements. PSYCHIATRIC: Appropriate mood and affect. Normal interaction. Course Vital Signs Vital signs: Vital Signs Temperature 98.3 F 01/17/23 08:53 Pulse Rate 105 H 01/17/23 08:53 Respiratory Rate 16 05/
[2023-01-17] MEDS: ACETAMINOPHEN 500 MG TABLET 1000 MG PO (09:23)
[2023-01-17] MEDS: IBUPROFEN 600 MG TABLET PO (09:23)
[2023-01-17] MEDS: LIDOCAINE HCL 2% VISC SOLN 15 ML UDC PO (09:24)
[2023-01-17 09:37] LABS: Strep Group A RT-PCR NOT DETECTED (Negative)
[2023-01-17 09:48] LABS: Influenza A QL RT-PCR Negative (Negative); Influenza B QL RT-PCR Negative (Negative); RSV RNA, RT-PCR Negative (Negative); SARS-CoV-2 RNA PCR Positive (Negative)
== END 2023-01-17 10:11 | disposition home or self-care (01) ==
PROVIDERS: Emergency Provider Physician Assistant
DX: U07.1 COVID-19 (principal)
CPT/HCPCS: 87637; 87651; 99283; A9270